=== PATIENT | female | born 1965 | race Caucasian/White ===

== ENCOUNTER 2016-12-12 12:35 | Emergency (ER) | payer MEDICAID ==
[~2016-12-12] VITALS: Ht 167.6 cm; Wt 52.2 kg
[2016-12-12 12:35] VITALS: BP_SYST 212
--- NOTE | 2016-12-12 12:35 | NUR ---
Pt BIB ALS, placed to ER bed 08. Pt report given to ROSCOE Awad.
--- NOTE | 2016-12-12 12:40 | NUR ---
Pt. to ER BIB BLS c/o N/V for 2 days, denies CP denies abdominal pain at this momet. c/o nausea at this time, lungs clear to auscultation bilaterally, follows commands, clear speech, skin warm to touch
--- NOTE | 2016-12-12 12:54 | NUR ---
Dr. Bass at bedside examining the pt.
[2016-12-12] MEDS ORDERED: ONDANSETRON HCL 4 MG/2 ML VIAL IVP ONE (13:15)
[2016-12-12] MEDS ORDERED: NACL 0.9% 1,000 ML IV ONE (13:15)
--- NOTE | 2016-12-12 13:32 | NUR ---
pt. out to CT scan via [facility]
[2016-12-12 13:38] LABS: INR 0.9 (0.8-1.2); PROTHROMBIN TIME 10.2 SECS (9.5-12.5)
[2016-12-12 13:39] LABS: ALBUMIN 3.9 g/dL (3.4-4.8); BASOPHILS % (AUTO) 0.3 % (0.0-2.0); CALCIUM 9.2 mg/dL (8.4-11.0); CREATININE 1.05 mg/dL (0.55-1.30); EOSINOPHILS # (AUTO) 1.8 K/uL (0.0-0.4); EOSINOPHILS % (AUTO) 20.6 % (0.0-4.0); HEMATOCRIT 39.2 % (36-48); HEMOGLOBIN 13.4 g/dL (12.0-16.0); LYMPHOCYTES # (AUTO) 1.2 K/uL (1.0-5.5); MEAN CORPUSCULAR HEMOGLOBIN 32 pg (27-31); MEAN CORPUSCULAR HGB CONC 34 % (32-36); MEAN CORPUSCULAR VOLUME 95 fL (79.0-98.0); MONOCYTES # (AUTO) 0.3 K/uL (0.0-1.0); MONOCYTES % (AUTO) 3.8 % (1.7-9.3); NEUTROPHILS # (AUTO) 5.6 K/uL (1.8-7.7); NEUTROPHILS % (AUTO) 61.3 % (40.0-70.0); PLATELET COUNT (AUTO) 228 K/uL (130-430); POTASSIUM 4.2 mmol/L (3.5-5.1); RED BLOOD CELL COUNT(AUTO) 4.14 MIL/uL (4.2-6.2); RED CELL DISTRIBUTION WIDTH 11.9 % (9.0-15.0); TOTAL BILIRUBIN 0.5 mg/dL (0.0-1.0); TOTAL PROTEIN, SERUM 7.8 g/dL (6.4-8.3); WHITE BLOOD COUNT (AUTO) 8.9 K/uL (4.8-10.8)
--- NOTE | 2016-12-12 13:45 | NUR ---
Pt. back from radiology via [facility]
--- NOTE | 2016-12-12 13:55 | NUR ---
Pt. states she feels much better at this time, denies nausea, no vomiting, on director cardiac
[2016-12-12] MEDS ORDERED: MECLIZINE HCL 25 MG TABLET (ANITVERT) PO ONE (14:15)
[2016-12-12 15:35] VITALS: BP_SYST 128
--- NOTE | 2016-12-12 15:35 | NUR ---
Patient given written and verbal discharge instructions and verbalizes understanding. ER MD discussed with patient the results and treatment provided. Patient in stable condition. ID arm band removed. IV catheter removed intact and dressing applied, no active bleeding. Rx of Valium, Spironolactone, zofran, and antivert given. Patient educated on pain management and to follow up with PMD in 2 days and ENT tomorrow. Pain Scale 0/10 Opportunity for questions provided and answered.
== END 2016-12-12 15:35 | disposition home or self-care (01) ==
LOC: SED 12:37
DX: R42 Dizziness and giddiness (principal)
CPT/HCPCS: 36415; 70450; 71010; 80053; 80061; 83880; 84484; 85025; 85610; 85730; 93005; 96361; 96374; 99285; J2405; J7030; J8597

== ENCOUNTER 2018-06-09 09:51 | Emergency (ER) | payer MEDICAID ==
[~2018-06-09] VITALS: Ht 167.6 cm; Wt 52.2 kg
[2018-06-09 09:51] VITALS: BP_SYST 141
--- NOTE | 2018-06-09 09:55 | NUR ---
Patient placed in bed 1.
--- NOTE | 2018-06-09 10:00 | NUR ---
ER Dr. Boyer at bedside examining patient.
--- NOTE | 2018-06-09 10:10 | NUR ---
Pt C/O chest pain radiating to the neck and back since Friday. Pt states pain is a 5/10 and has periods of nausea. Currently vital signs are stable and will continue to monitor.
[2018-06-09] MEDS ORDERED: KETOROLAC TROMETHAMINE 60 MG/2 ML VIAL IM ONE (10:30)
--- NOTE | 2018-06-09 10:40 | NUR ---
RESTING QUIETLY, NO CHANGES. FAMILY AT BEDSIDE FOR SUPPORT
[2018-06-09 10:45] LABS: BASOPHILS # (AUTO) 0.1 K/uL (0.0-0.2); BASOPHILS % (AUTO) 1.1 % (0.0-2.0); EOSINOPHILS % (AUTO) 0.2 % (0.0-4.0); HEMOGLOBIN 12.5 g/dL (12.0-16.0); LYMPHOCYTES # (AUTO) 1.2 K/uL (1.0-5.5); MEAN CORPUSCULAR HEMOGLOBIN 33 pg (27-31); MEAN CORPUSCULAR HGB CONC 35 % (32-36); MEAN CORPUSCULAR VOLUME 94 fL (79.0-98.0); MONOCYTES # (AUTO) 0.3 K/uL (0.0-1.0); MONOCYTES % (AUTO) 5.2 % (1.7-9.3); NEUTROPHILS # (AUTO) 4.8 K/uL (1.8-7.7); NEUTROPHILS % (AUTO) 74.5 % (40.0-70.0); PLATELET COUNT (AUTO) 219 K/uL (130-430); RED BLOOD CELL COUNT(AUTO) 3.83 MIL/uL (4.2-6.2); RED CELL DISTRIBUTION WIDTH 11.5 % (9.0-15.0); WHITE BLOOD COUNT (AUTO) 6.4 K/uL (4.8-10.8)
--- NOTE | 2018-06-09 11:20 | NUR ---
Pt is resting quietly in bed. Pt was medicated for 8/10 pain. Pt tolerated medication administration, no adverse effects noted.
[2018-06-09 11:26] LABS: CALCIUM 9.6 mg/dL (8.4-11.0); CREATININE 0.84 mg/dL (0.55-1.30); POTASSIUM 4.2 mmol/L (3.5-5.1)
[2018-06-09 11:31] LABS: ALBUMIN 3.9 g/dL (3.4-4.8); TOTAL BILIRUBIN 0.4 mg/dL (0.0-1.0)
[2018-06-09 12:34] VITALS: BP_SYST 141
--- NOTE | 2018-06-09 12:35 | NUR ---
Patient given written and verbal discharge instructions and verbalizes understanding. ER MD discussed with patient the results and treatment provided. Patient in stable condition. ID arm band removed. Rx of Tramadol and Naproxen given. Patient educated on pain management and to follow up with PMD. Pain Scale 2/10. Opportunity for questions provided and answered. Medication side effect fact sheet provided.
== END 2018-06-09 12:34 | disposition home or self-care (01) ==
LOC: SED 09:51
DX: R07.89 Other chest pain (principal); R03.0 Elevated blood-pressure reading, without diagnosis of hypertension
CPT/HCPCS: 36415; 71045; 80053; 82550; 84484; 85025; 93005; 96372; 99284; J1885